=== PATIENT | female | born 1955 | race African-American/Black ===

== ENCOUNTER → 2018-12-04 | Outpatient (CLI) | payer OTHER ==
--- NOTE | 2018-12-04 17:20 | KCIC ---
2 view study of the toes of the left foot Clinical indications: Pain and swelling of the fifth digit after injury a few days ago. FINDINGS: There is cortical disruption of the fifth distal phalanx. This may represent a subtle nondisplaced fracture. No dislocation or lytic process evident. IMPRESSION: Suspected nondisplaced fracture of the fifth distal phalanx. Electronically signed by: Herb Wade MD (12/04/2018 5:17 PM) [facility]
== END | disposition home or self-care (01) ==
LOC: KCIC 15:50
PROVIDERS: ATTEND Family Medicine
DX: M89.8X7 Other specified disorders of bone, ankle and foot (principal)
CPT/HCPCS: 73660

== ENCOUNTER 2021-08-03 09:12 | Inpatient (IN) | payer MEDICARE, OTHER ==
[~2021-08-03] VITALS: Ht 162.6 cm; Wt 82.8 kg
[2021-08-03 09:51] LABS: BASO % 1 % (0-3); EOS # 0.3 x10^3/uL (0.0-0.7); EOS % 4 % (0-3); HEMOGLOBIN 10.8 g/dL (12.0-15.5); LYMPH # 2.4 x10^3/uL (1.0-4.8); LYMPH % 32 % (24-48); MEAN CORPUSCULAR HEMOGLOBIN 27 pg (25-35); MEAN CORPUSCULAR HGB CONC 33 g/dL (31-37); MEAN CORPUSCULAR VOLUME 83 fL (79-100); MONO # 0.5 x10^3/uL (0.0-1.1); MONO % 7 % (0-9); NEUT # 4.2 x10^3/uL (1.8-7.7); NEUT % 57 % (31-73); PLATELET COUNT 276 x10^3/uL (140-400); RED BLOOD COUNT 3.96 x10^6/uL (3.50-5.40); RED CELL DISTRIBUTION WIDTH 15.5 % (11.5-14.5); WHITE BLOOD COUNT 7.5 x10^3/uL (4.0-11.0)
[2021-08-03 10:03] LABS: PROTHROMBIN TIME PATIENT 12.1 SEC (11.7-14.0)
[2021-08-03 10:11] LABS: CALCIUM 8.7 mg/dL (8.5-10.1); CREATININE 2.5 mg/dL (0.6-1.0); GFR 23.2; POTASSIUM 4.2 mmol/L (3.5-5.1)
[2021-08-03] MEDS ORDERED: METF500T16 PO (10:14)
[2021-08-03] MEDS ORDERED: LIPITOR80 MG PO (10:14)
[2021-08-03] MEDS ORDERED: AMLO-186 PO (10:14)
[2021-08-03] MEDS ORDERED: GLIP5TAB10 PO (10:14)
[2021-08-03] MEDS ORDERED: HYDR-2869 PO (10:14)
[2021-08-03] MEDS ORDERED: CLON1PAT TD (10:14)
[2021-08-03] MEDS ORDERED: POTA10TA12 PO (10:14)
[2021-08-03] MEDS ORDERED: LISI20TA18 PO (10:14)
[2021-08-03] MEDS ORDERED: METO50TA6 PO (10:14)
[2021-08-03] MEDS ORDERED: LEVO137T3 PO (10:14)
[2021-08-03 10:16] LABS: ALBUMIN 2.7 g/dL (3.4-5.0); ALBUMIN/GLOBULIN RATIO 0.8 (1.0-1.7); TOTAL BILIRUBIN 0.4 mg/dL (0.2-1.0); TOTAL PROTEIN 6.2 g/dL (6.4-8.2)
--- NOTE | 2021-08-03 10:25 | RAD ---
XR CHEST 1V History: Altered mental status Comparison: None. Technique: Portable AP radiograph of the chest. Findings: The lungs are hypoinflated with bronchovascular crowding. No focal airspace consolidation, effusion o r pneumothorax. Postsurgical changes of the mediastinum with sternotomy wires and fixation plates. Me diastinal surgical clips. Soft tissues and osseous structures are unremarkable. Impression: 1. Hypoinflation. No acute cardiopulmonary findings. Electronically signed by: Waqas Burger MD (08/03/2021 10:22 AM) [id number]
--- NOTE | 2021-08-03 10:26 | RAD ---
INDICATION: Reason: altered mental status / Spl. Instructions: / History: . COMPARISON: None. TECHNIQUE: Axial CT images obtained through the head. One or more of the following individualized dose reduction techniques were utilized for this examinat ion: 1. Automated exposure control; 2. Adjustment of the mA and/or kV according to patient size; 3 . Use of iterative reconstruction technique. FINDINGS: No significant midline shift. Suprasellar cistern is not effaced. There are multiple regions of low density within the bilateral cerebral hemispheres. One of the large st regions of low density is within the left cerebral hemisphere posteriorly including within the occ ipital as well as posterior aspect of the temporal region. Severe calcific atherosclerosis. There is an additional confluent region of low density within the right frontal region. Calvarial hyperostosis with some artifact seen deep to the calvarium. Small amount of high density fluid within sphenoid sinus. IMPRESSION: * No definite acute intracranial hemorrhage. There is some high density just deep to the calvarium b ilaterally but this is likely artifactual in nature. * Within the left cerebral hemisphere posteriorly there is a large area of low density identified wi th some volume loss. 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 This is m ost likely a chronic finding given the volume loss within the region. * There are additional multifocal regions of low density within the bilateral cerebral hemispheres o f indeterminate age. Could be secondary to gliosis or edema and if there is clinical concern for acut e etiology it may be helpful to obtain an MRI to further assess and ensure that there is no acute on chronic process. * Partial opacification of sphenoid sinus which could be from congestion or sinusitis. Electronically signed by: Sanju Mark MD (08/03/2021 10:24 AM) [id number]
[2021-08-03 11:31] LABS: BACTERIA,URINE MANY /HPF (0-FEW)
[2021-08-03 11:35] LABS: BARBITURATES NEG (NEG); BENZODIAZEPINES NEG (NEG); CANNABINOIDS NEG (NEG); COCAINE NEG (NEG); METHADONE NEG (NEG); OPIATES NEG (NEG); PHENCYCLIDINE NEG (NEG)
[2021-08-03 11:47] LABS: AMPHETAMINE/METHAMPHETAMINE NEG (NEG)
--- NOTE | 2021-08-03 12:18 | PHYS DOC ---
Past Medical History Past Surgical History: Cholecystectomy, Coronary Bypass Surgery Smoking Status: Unknown if ever smoked Alcohol Use: None General Adult EDM: Chief Complaint: ALTERED MENTAL STATUS HPI: HPI: Patient is a 66 year old female who presents with altered mental status. Patient was hospitalized last month at [facility]. Patient was told that she had kidney disease as well as high blood pressure and was bradycardic. Patient presents with altered mental status this morning. Apparently, according to the partner, patient took her medications and then became somnolent. Patient is easily arousable to voice. Patient is A&O x3. Otherwise patient is not complaining of any symptoms or pain. Patient has not been complaining about any symptoms in the last couple of days either. According to the partner, this has happened before. Review of Systems: Review of Systems: Constitutional: Denies fever or chills. Eyes: Denies change in visual acuity. HENT: Denies nasal congestion or sore throat. Respiratory: Denies cough or shortness of breath. Cardiovascular: Denies chest pain or edema. GI: Denies abdominal pain, nausea, vomiting, bloody stools or diarrhea. : Denies dysuria. Musculoskeletal: Denies back pain or joint pain. Integument: Denies rash. Neurologic: Denies headache, focal weakness or sensory changes. Endocrine: Denies polyuria or polydipsia. Lymphatic: Denies swollen glands. Psychiatric: Denies depression or anxiety. Heart Score: C/O Chest Pain: No Risk Factors: Risk Factors: DM, Current or recent (<one month) smoker, HTN, HLP, family history of CAD, obesity. Risk Scores: Score 0 - 3: 2.5% MACE over next 6 weeks - Discharge Home Score 4 - 6: 20.3% MACE over next 6 weeks - Admit for Clinical Observation Score 7 - 10: 72.7% MACE over next 6 weeks - Early Invasive Strategies Physical Exam: PE: Constitutional: Well developed, well nourished, no acute distress, non-toxic appearance. Somnolent. HENT: Normocephalic, atraumatic, bilateral external ears normal, oropharynx moist, no oral exudates, nose normal. Eyes: PERRLA, EOMI, conjunctiva normal, no discharge. Neck: Normal range of motion, no tenderness, supple, no stridor. Cardiovascular:Heart rate bradycardic regular rhythm, no murmur Lungs & Thorax: Bilateral breath sounds clear to auscultation Abdomen: Bowel sounds normal, soft, no tenderness, no masses, no pulsatile masses. Skin: Warm, dry, no erythema, no rash. Back: No tenderness, no CVA tenderness. Extremities: No tenderness, no cyanosis, no clubbing, ROM intact, no edema. Neurologic: Alert and oriented X 3, normal motor function, normal sensory function, no focal deficits noted. Psychologic: Affect normal, judgement normal, mood normal. Current Patient Data: Labs: Laboratory Tests Test 08/03/21 09:28 08/03/21 09:30 08/03/21 11:18 Glucose (Fingerstick) 180 mg/dL (70-99) H White Blood Count 7.5 x10^3/uL (4.0-11.0) Red Blood Count 3.96 x10^6/uL (3.50-5.40) Hemoglobin 10.8 g/dL (12.0-15.5) L Hematocrit 33.0 % (36.0-47.0) L Mean Corpuscular Volume 83 fL (79-100) Mean Corpuscular Hemoglobin 27 pg (25-35) Mean Corpuscular Hemoglobin Concent 33 g/dL (31-37) Red Cell Distribution Width 15.5 % (11.5-14.5) H Platelet Count 276 x10^3/uL (140-400) Neutrophils (%) (Auto) 57 % (31-73) Lymphocytes (%) (Auto) 32 % (24-48) Monocytes (%) (Auto) 7 % (0-9) Eosinophils (%) (Auto) 4 % (0-3) H Basophils (%) (Auto) 1 % (0-3) Neutrophils # (Auto) 4.2 x10^3/uL (1.8-7.7) Lymphocytes # (Auto) 2.4 x10^3/uL (1.0-4.8) Monocytes # (Auto) 0.5 x10^3/uL (0.0-1.1) Eosinophils # (Auto) 0.3 x10^3/uL (0.0-0.7) Basophils # (Auto) 0.0 x10^3/uL (0.0-0.2) Prothrombin Time 12.1 SEC (11.7-14.0) Prothrombin Time INR 0.9 (0.8-1.1) Sodium Level 140 mmol/L (136-145) Potassium Level 4.2 mmol/L (3.5-5.1) Chloride Level 106 mmol/L (98-107) Carbon Dioxide Level 23 mmol/L (21-32) Anion Gap 11 (6-14) Blood Urea Nitrogen 26 mg/dL (7-20) H Creatinine 2.5 mg/dL (0.6-1.0) H Estimated GFR (Cockcroft-Gault) 23.2 BUN/Creatinine Ratio 10 (6-20) Glucose Level 174 mg/dL (70-99) H Calcium Level 8.7 mg/dL (8.5-10.1) Total Bilirubin 0.4 mg/dL (0.2-1.0) Aspartate Amino Transferase (AST) 17 U/L (15-37) Alanine Aminotransferase (ALT) 16 U/L (14-59) Alkaline Phosphatase 88 U/L (46-116) Ammonia < 10 mcmol/L (11-34) L Troponin I High Sensitivity 27 ng/L (4-50) Total Protein 6.2 g/dL (6.4-8.2) L Albumin 2.7 g/dL (3.4-5.0) L Albumin/Globulin Ratio 0.8 (1.0-1.7) L Urine Collection Type Unknown Urine Color (Auto) Yellow Urine Turbidity Turbid Urine pH (Auto) 5.5 (<5.0-8.0) Urine Specific [place] 1.019 (1.000-1.030) Urine Protein (Auto) 300 mg/dL (Negative) Urine Glucose (Auto)(UA) Negative mg/dL (Negative) Urine Ketones (Auto) Negative mg/dL (Negative) Urine Blood (Auto) Negative (Negative) Urine Nitrite (Auto) Negative (Negative) Urine Bilirubin (Auto) Negative (Negative) Urine Urobilinogen (Auto) Normal mg/dL (Normal) Urine Leukocyte Esterase (Auto) Small (Negative) Urine RBC 1-2 /HPF (0-2) Urine WBC 5-10 /HPF (0-4) Urine Squamous Epithelial Cells Mod /LPF Urine Bacteria Many /HPF (0-FEW) Urine Opiates Screen Neg (NEG) Urine Methadone Screen Neg (NEG) Urine Barbiturates Neg (NEG) Urine Phencyclidine Screen Neg (NEG) Urine Amphetamine/Methamphetamine Neg (NEG) Urine Benzodiazepines Screen Neg (NEG) Urine Cocaine Screen Neg (NEG) Urine Cannabinoids Screen Neg (NEG) Urine Ethyl Alcohol Neg (NEG) Laboratory Tests 08/03/21 09:30 Laboratory Tests 08/03/21 09:30 Vital Signs: Vital Signs Date Time Temp Pulse Resp B/P (MAP) Pulse Ox O2 Delivery O2 Flow Rate FiO2 08/03/21 11:52 46 16 100/55 (70) 99 08/03/21 09:28 97.2 Room Air 97.2 EKG: EKG: bradycardia Radiology/Procedures: Radiology/Procedures: CT head no acute abnormalities Course & Med Decision Making: Course & Med Decision Making Pertinent Labs and Imaging studies reviewed. (See chart for details) 66-year-old female with altered mental status, CT of the head as well as labs are not showing any acute abnormalities that would explain altered mental status. It was noted that she took her medications and then became somnolent. This may be an accidental overdose, however nothing is seen abnormal on labs. None of her medications should warrant sleepiness. I spoke to the hospitalist who agreed to monitor the patient in follow-up from [facility] medical records to examine what occurred during her previous hospitalization. Patient is not at baseline so she will need to be monitored more closely. Patient is currently in stable condition on admission. Pascale Disclaimer: Pascale Disclaimer: This electronic medical record was generated, in whole or in part, using a voice recognition dictation system. Departure Departure Referrals: KEVIN LOVE MD (PCP) GIGI TRACEY MD Aug 03, 2021 12:18
[2021-08-03 15:00] VITALS: BP 120/57
--- NOTE | 2021-08-03 15:27 | PDOC1 ---
History and Physical Date of Service: DOS: DATE: 08/03/21 TIME: 15:19 Chief Complaint: Chief Complain: Altered mental status. History of Present Illness: HPI: 66-year-old female with past medical history of CABG and hypertension and diabetes who comes in for altered mental status brought in by her . Patient apparently went to last month for elevated blood pressures. She they are unsure of what the discharge diagnosis was but they did send her out with multiple blood pressure medications which included a clonidine patch, amlodipine, metoprolol and losartan. Patient had 2 bags full of medications and there is some duplicates as well. However there was no aspirin or Plavix. Patient was brought in today because noticed she was sleepy and was not being herself. However patient is alert and awake and oriented x3. Denies any abdominal pain, chest pain, shortness of breath, dysuria or constipation. Past Medical/Surgical History: PMH/PSH: Past medical history of diabetes, hypertension, CABG Family History: Family History: Reviewed with no relative findings in the chart Social History: Social History: Denies alcohol, tobacco or drug abuse Current Medications: Current Medications Active Scripts Active Reported Clonidine Tts-1 (Clonidine) 1 Each Patch.tdwk 1 Patch TD WEEKLY Hydralazine Hcl 50 Mg Tablet 1 Tab PO TID Lisinopril 20 Mg Tablet 1 Tab PO DAILY Lipitor (Atorvastatin Calcium) 80 Mg Tablet 1 Tab PO DAILY Metoprolol Tartrate 50 Mg Tablet 1 Tab PO BID Potassium Chloride (Potassium Chloride) 10 Meq Tab.sr.24h 10 Meq PO DAILY Metformin Hcl 500 Mg Tablet 500 Mg PO BIDWMEALS Levothyroxine Sodium 137 Mcg Tablet 1 Tab PO DAILY Glipizide 5 Mg Tablet 1 Tab PO BID Amlodipine Besylate 5 Mg Tablet 5 Mg PO DAILY ROS: Review of Systems Review of System REVIEW OF SYSTEMS: GENERAL: Denies weakness SKIN: No bruising, hair changes or rashes. EYES: No blurred, double or loss of vision. NOSE AND THROAT: No history of nosebleeds, hoarseness or sore throat. HEART: No history of palpitations, chest pain or shortness of breath on exertion. LUNGS: Denies cough, hemoptysis, wheezing or shortness of breath. GASTROINTESTINAL: Denies changes in appetite, nausea, vomiting, diarrhea or constipation. GENITOURINARY: No history of frequency, urgency, hesitancy or nocturia. NEUROLOGIC: Denies history of numbness, tingling, or tremor. PSYCHIATRIC: No history of panic, anxiety or depression. ENDOCRINE: No history of heat or cold intolerance, polyuria or polydipsia. EXTREMITIES: Denies joint pain, pain on walking or stiffness. Physical Exam: Vital Signs: Vital Signs Date Time Temp Pulse Resp B/P (MAP) Pulse Ox O2 Delivery O2 Flow Rate FiO2 08/03/21 13:46 54 16 116/64 (81) 98 08/03/21 09:28 97.2 Room Air 97.2 Physcial Exam: General: Well developed, well nourished, no acute distress, well appearing HEENT: Pupils equally round and reactive to light, EOMI, no discharge, normal conjunctiva Neck: Supple, no nuchal rigidity, no JVD, trachea midline, no tenderness Cardiac: RRR, no murmurs, no gallops, no rubs Chest/Lungs: CTAB, no wheeze, no rhonchi, no crackles Abdomen: soft, non-distended, no guarding, no peritoneal signs, non-tender Back: No tenderness Extremities: no edema, pulses intact, non-tender,capillary refill <3 sec bilateral upper and lower extremities, Neuro: Alert and oriented x 4, no focal deficits, normal speech. Lethargic appearing needed to go pee. Labs: Labs: Laboratory Tests Test 08/03/21 09:28 08/03/21 09:30 08/03/21 11:18 Glucose (Fingerstick) 180 mg/dL (70-99) White Blood Count 7.5 x10^3/uL (4.0-11.0) Red Blood Count 3.96 x10^6/uL (3.50-5.40) Hemoglobin 10.8 g/dL (12.0-15.5) Hematocrit 33.0 % (36.0-47.0) Mean Corpuscular Volume 83 fL (79-100) Mean Corpuscular Hemoglobin 27 pg (25-35) Mean Corpuscular Hemoglobin Concent 33 g/dL (31-37) Red Cell Distribution Width 15.5 % (11.5-14.5) Platelet Count 276 x10^3/uL (140-400) Neutrophils (%) (Auto) 57 % (31-73) Lymphocytes (%) (Auto) 32 % (24-48) Monocytes (%) (Auto) 7 % (0-9) Eosinophils (%) (Auto) 4 % (0-3) Basophils (%) (Auto) 1 % (0-3) Neutrophils # (Auto) 4.2 x10^3/uL (1.8-7.7) Lymphocytes # (Auto) 2.4 x10^3/uL (1.0-4.8) Monocytes # (Auto) 0.5 x10^3/uL (0.0-1.1) Eosinophils # (Auto) 0.3 x10^3/uL (0.0-0.7) Basophils # (Auto) 0.0 x10^3/uL (0.0-0.2) Prothrombin Time 12.1 SEC (11.7-14.0) Prothromb Time International Ratio 0.9 (0.8-1.1) Sodium Level 140 mmol/L (136-145) Potassium Level 4.2 mmol/L (3.5-5.1) Chloride Level 106 mmol/L (98-107) Carbon Dioxide Level 23 mmol/L (21-32) Anion Gap 11 (6-14) Blood Urea Nitrogen 26 mg/dL (7-20) Creatinine 2.5 mg/dL (0.6-1.0) Estimated GFR (Cockcroft-Gault) 23.2 BUN/Creatinine Ratio 10 (6-20) Glucose Level 174 mg/dL (70-99) Calcium Level 8.7 mg/dL (8.5-10.1) Total Bilirubin 0.4 mg/dL (0.2-1.0) Aspartate Amino Transf (AST/SGOT) 17 U/L (15-37) Alanine Aminotransferase (ALT/SGPT) 16 U/L (14-59) Alkaline Phosphatase 88 U/L (46-116) Ammonia < 10 mcmol/L (11-34) Troponin I High Sensitivity 27 ng/L (4-50) Total Protein 6.2 g/dL (6.4-8.2) Albumin 2.7 g/dL (3.4-5.0) Albumin/Globulin Ratio 0.8 (1.0-1.7) Urine Collection Type Unknown Urine Color (Auto) Yellow Urine Turbidity Turbid Urine pH (Auto) 5.5 (<5.0-8.0) Urine Specific [place] 1.019 (1.000-1.030) Urine Protein (Auto) 300 mg/dL (Negative) Urine Glucose (Auto)(UA) Negative mg/dL (Negative) Urine Ketones (Auto) Negative mg/dL (Negative) Urine Blood (Auto) Negative (Negative) Urine Nitrite (Auto) Negative (Negative) Urine Bilirubin (Auto) Negative (Negative) Urine Urobilinogen (Auto) Normal mg/dL (Normal) Urine Leukocyte Esterase (Auto) Small (Negative) Urine RBC 1-2 /HPF (0-2) Urine WBC 5-10 /HPF (0-4) Urine Squamous Epithelial Cells Mod /LPF Urine Bacteria Many /HPF (0-FEW) Urine Opiates Screen Neg (NEG) Urine Methadone Screen Neg (NEG) Urine Barbiturates Neg (NEG) Urine Phencyclidine Screen Neg (NEG) Urine Amphetamine/Methamphetamine Neg (NEG) Urine Benzodiazepines Screen Neg (NEG) Urine Cocaine Screen Neg (NEG) Urine Cannabinoids Screen Neg (NEG) Urine Ethyl Alcohol Neg (NEG) Laboratory Tests Test 08/03/21 09:28 08/03/21 09:30 08/03/21 11:18 Glucose (Fingerstick) 180 mg/dL (70-99) White Blood Count 7.5 x10^3/uL (4.0-11.0) Red Blood Count 3.96 x10^6/uL (3.50-5.40) Hemoglobin 10.8 g/dL (12.0-15.5) Hematocrit 33.0 % (36.0-47.0) Mean Corpuscular Volume 83 fL (79-100) Mean Corpuscular Hemoglobin 27 pg (25-35) Mean Corpuscular Hemoglobin Concent 33 g/dL (31-37) Red Cell Distribution Width 15.5 % (11.5-14.5) Platelet Count 276 x10^3/uL (140-400) Neutrophils (%) (Auto) 57 % (31-73) Lymphocytes (%) (Auto) 32 % (24-48) Monocytes (%) (Auto) 7 % (0-9) Eosinophils (%) (Auto) 4 % (0-3) Basophils (%) (Auto) 1 % (0-3) Neutrophils # (Auto) 4.2 x10^3/uL (1.8-7.7) Lymphocytes # (Auto) 2.4 x10^3/uL (1.0-4.8) Monocytes # (Auto) 0.5 x10^3/uL (0.0-1.1) Eosinophils # (Auto) 0.3 x10^3/uL (0.0-0.7) Basophils # (Auto) 0.0 x10^3/uL (0.0-0.2) Prothrombin Time 12.1 SEC (11.7-14.0) Prothromb Time International Ratio 0.9 (0.8-1.1) Sodium Level 140 mmol/L (136-145) Potassium Level 4.2 mmol/L (3.5-5.1) Chloride Level 106 mmol/L (98-107) Carbon Dioxide Level 23 mmol/L (21-32) Anion Gap 11 (6-14) Blood Urea Nitrogen 26 mg/dL (7-20) Creatinine 2.5 mg/dL (0.6-1.0) Estimated GFR (Cockcroft-Gault) 23.2 BUN/Creatinine Ratio 10 (6-20) Glucose Level 174 mg/dL (70-99) Calcium Level 8.7 mg/dL (8.5-10.1) Total Bilirubin 0.4 mg/dL (0.2-1.0) Aspartate Amino Transf (AST/SGOT) 17 U/L (15-37) Alanine Aminotransferase (ALT/SGPT) 16 U/L (14-59) Alkaline Phosphatase 88 U/L (46-116) Ammonia < 10 mcmol/L (11-34) Troponin I High Sensitivity 27 ng/L (4-50) Total Protein 6.2 g/dL (6.4-8.2) Albumin 2.7 g/dL (3.4-5.0) Albumin/Globulin Ratio 0.8 (1.0-1.7) Urine Collection Type Unknown Urine Color (Auto) Yellow Urine Turbidity Turbid Urine pH (Auto) 5.5 (<5.0-8.0) Urine Specific [place] 1.019 (1.000-1.030) Urine Protein (Auto) 300 mg/dL (Negative) Urine Glucose (Auto)(UA) Negative mg/dL (Negative) Urine Ketones (Auto) Negative mg/dL (Negative) Urine Blood (Auto) Negative (Negative) Urine Nitrite (Auto) Negative (Negative) Urine Bilirubin (Auto) Negative (Negative) Urine Urobilinogen (Auto) Normal mg/dL (Normal) Urine Leukocyte Esterase (Auto) Small (Negative) Urine RBC 1-2 /HPF (0-2) Urine WBC 5-10 /HPF (0-4) Urine Squamous Epithelial Cells Mod /LPF Urine Bacteria Many /HPF (0-FEW) Urine Opiates Screen Neg (NEG) Urine Methadone Screen Neg (NEG) Urine Barbiturates Neg (NEG) Urine Phencyclidine Screen Neg (NEG) Urine Amphetamine/Methamphetamine Neg (NEG) Urine Benzodiazepines Screen Neg (NEG) Urine Cocaine Screen Neg (NEG) Urine Cannabinoids Screen Neg (NEG) Urine Ethyl Alcohol Neg (NEG) Images: Images PROCEDURE: PORTABLE CHEST 1V XR CHEST 1V History: Altered mental status Comparison: None. Technique: Portable AP radiograph of the chest. Findings: The lungs are hypoinflated with bronchovascular crowding. No focal airspace consolidation, effusion or pneumothorax. Postsurgical changes of the mediastinum with sternotomy wires and fixation plates. Mediastinal surgical clips. Soft tissues and osseous structures are unremarkable. Impression: 1. Hypoinflation. No acute cardiopulmonary findings. PROCEDURE: CT HEAD WO CONTRAST INDICATION: Reason: altered mental status / Spl. Instructions: / History: . COMPARISON: None. TECHNIQUE: Axial CT images obtained through the head. One or more of the following individualized dose reduction techniques were utilized for this examination: 1. Automated exposure control; 2. Adjustment of the mA and/or kV according to patient size; 3. Use of iterative reconstruction technique. FINDINGS: No significant midline shift. Suprasellar cistern is not effaced. There are multiple regions of low density within the bilateral cerebral hemispheres. One of the largest regions of low density is within the left cerebral hemisphere posteriorly including within the occipital as well as po sterior aspect of the temporal region. Severe calcific atherosclerosis. There is an additional confluent region of low density within the right frontal region. Calvarial hyperostosis with some artifact seen deep to the calvarium. Small amount of high density fluid within sphenoid sinus. IMPRESSION: * No definite acute intracranial hemorrhage. There is some high density just deep to the calvarium bilaterally but this is likely artifactual in nature. * Within the left cerebral hemisphere posteriorly there is a large area of low density identified with some volume loss. 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 This is most likely a chronic finding given the volume loss within the region. * There are additional multifocal regions of low density within the bilateral cerebral hemispheres of indeterminate age. Could be secondary to gliosis or edema and if there is clinical concern for acute etiology it may be helpful to obtain an MRI to further assess and ensure that there is no acute on chronic process. * Partial opacification of sphenoid sinus which could be from congestion or sinusitis. Assessment/Plan Assessment/Plan Acute metabolic encephalopathy, possibly related to polypharmacy Bradycardia possibly secondary to beta-blockade Acute on chronic kidney injury History of diabetes mellitus type 2 History of hypertension History of CABG Admit to hospitalist service for further management Continue telemetry monitoring Consider cardiology consult if continues to be bradycardic or more symptomatic Hold all antihypertensive regimens R-ISS and Accu-Cheks Vital signs per floor Lovenox for DVT prophylaxis ADA/cardiac diet CODE STATUS full Discussed with RN and SW Disposition inpatient management as above DPOA: Justifications for Admission Other Justification AURORA LR MD Aug 03, 2021 15:27
[2021-08-03] MEDS ORDERED: diphenhydrAMINE HCL 25 MG CAPSULE PO PRN ×2 (15:30)
[2021-08-03] MEDS ORDERED: ONDANSETRON PF 4 MG/2 ML VIAL. IVP PRN (15:30)
[2021-08-03] MEDS ORDERED: ZOLPIDEM 5 MG TABLET. PO PRN (15:30)
[2021-08-03] MEDS ORDERED: SENNOSIDES 8.6 MG TABLET PO PRN (15:30)
[2021-08-03] MEDS ORDERED: DOCUSATE SODIUM 100 MG CAPSULE. PO PRN (15:30)
[2021-08-03] MEDS ORDERED: PROCHLORPERAZINE 10 MG/2 ML VIAL. IV PRN (15:30)
[2021-08-03] MEDS: IV NORMAL SALINE 1000ML BAG 1,000 ML IV SCH (15:30)
[2021-08-03] MEDS ORDERED: DEXTROSE 50% 25 GM / 50ML DISP.SYRIN. IV PRN (15:30)
[2021-08-03] MEDS ORDERED: diphenhydrAMINE 50 MG/ML VIAL IVP PRN (15:30)
[2021-08-03] MEDS ORDERED: LORazepam 0.5 MG TABLET PO PRN (15:30)
[2021-08-03] MEDS: INSULIN LISPRO 300 UNITS/3 ML VIAL. SQ SCH (16:46)
[2021-08-03] MEDS: ENOXAPARIN 30 MG/0.3 ML SYRINGE. SQ SCH (17:37)
[2021-08-03 19:00] VITALS: BP 125/63
[2021-08-03 23:00] VITALS: BP 121/60
[2021-08-04] MEDS: IV NORMAL SALINE 1000ML BAG 1,000 ML IV SCH ×2 (01:36→12:26)
[2021-08-04 03:26] VITALS: BP 133/63
[2021-08-04 07:00] VITALS: BP 142/71
[2021-08-04] MEDS: INSULIN LISPRO 300 UNITS/3 ML VIAL. SQ SCH ×3 (08:00→17:46)
[2021-08-04 09:00] LABS: BASO # 0.1 x10^3/uL (0.0-0.2); BASO % 1 % (0-3); EOS # 0.2 x10^3/uL (0.0-0.7); EOS % 2 % (0-3); HEMOGLOBIN 10.4 g/dL (12.0-15.5); LYMPH # 2.1 x10^3/uL (1.0-4.8); LYMPH % 27 % (24-48); MEAN CORPUSCULAR HEMOGLOBIN 28 pg (25-35); MEAN CORPUSCULAR HGB CONC 34 g/dL (31-37); MEAN CORPUSCULAR VOLUME 83 fL (79-100); MONO # 0.4 x10^3/uL (0.0-1.1); MONO % 6 % (0-9); NEUT # 5.1 x10^3/uL (1.8-7.7); NEUT % 65 % (31-73); PLATELET COUNT 227 x10^3/uL (140-400); RED BLOOD COUNT 3.74 x10^6/uL (3.50-5.40); RED CELL DISTRIBUTION WIDTH 15.5 % (11.5-14.5); WHITE BLOOD COUNT 7.8 x10^3/uL (4.0-11.0)
[2021-08-04 09:35] LABS: CALCIUM 8.4 mg/dL (8.5-10.1); CREATININE 2.3 mg/dL (0.6-1.0); GFR 25.6; MAGNESIUM 1.8 mg/dL (1.8-2.4); PHOSPHORUS 4.8 mg/dL (2.6-4.7); POTASSIUM 3.8 mmol/L (3.5-5.1)
[2021-08-04 11:00] VITALS: BP 144/66
--- NOTE | 2021-08-04 14:11 | PDOC ---
[employer] PROGRESS NOTE Date of Service DOS: DATE: 08/04/21 TIME: 13:50 Chief Complaint Chief Complaint Acute metabolic encephalopathy, possibly related to polypharmacy Bradycardia possibly secondary to beta-blockade Acute on chronic kidney injury History of diabetes mellitus type 2 History of hypertension History of CABG Abnormal head CT scan Admit to hospitalist service for further management Continue telemetry monitoring Consider cardiology consult if continues to be bradycardic or more symptomatic Hold all antihypertensive regimens R-ISS and Accu-Cheks Vital signs per floor Lovenox for DVT prophylaxis ADA/cardiac diet CODE STATUS full Discussed with RN and SW Disposition inpatient management as above DPOA: History of Present Illness History of Present Illness 66-year-old female with past medical history of CABG and hypertension and diabetes who comes in for altered mental status brought in by her . Patient apparently went to last month for elevated blood pressures. She they are unsure of what the discharge diagnosis was but they did send her out with multiple blood pressure medications which included a clonidine patch, amlo dipine, metoprolol and losartan. Patient had 2 bags full of medications and there is some duplicates as well. However there was no aspirin or Plavix. Patient was brought in because noticed she was sleepy and was not being herself. Denies any abdominal pain, chest pain, shortness of breath, dysuria or constipation. 08/04: Still confused and drowsy. Blood pressure low bradycardic in the 50s. Blood glucose elevated. Patient notes no history of kidney disease Vitals/I&O Vitals/I&O: Vital Signs Date Time Temp Pulse Resp B/P (MAP) Pulse Ox O2 Delivery O2 Flow Rate FiO2 08/04/21 11:00 97.7 52 18 144/66 (92) 100 Room Air 97.7 I & O 08/03/21 08/03/21 08/04/21 15:00 23:00 07:00 Intake Total 240 ml 0 ml Balance 240 ml 0 ml Physical Exam General: Alert, Cooperative Heart: Other (Bradycardic) Lungs: Clear Abdomen: Normal bowel sounds, Soft Extremities: No clubbing, No cyanosis Skin: No rashes, No breakdown Labs Labs: Laboratory Tests Test 08/03/21 16:40 08/03/21 21:06 08/04/21 07:34 08/04/21 08:45 Glucose (Fingerstick) 76 mg/dL (70-99) 125 mg/dL (70-99) 101 mg/dL (70-99) White Blood Count 7.8 x10^3/uL (4.0-11.0) Red Blood Count 3.74 x10^6/uL (3.50-5.40) Hemoglobin 10.4 g/dL (12.0-15.5) Hematocrit 31.0 % (36.0-47.0) Mean Corpuscular Volume 83 fL (79-100) Mean Corpuscular Hemoglobin 28 pg (25-35) Mean Corpuscular Hemoglobin Concent 34 g/dL (31-37) Red Cell Distribution Width 15.5 % (11.5-14.5) Platelet Count 227 x10^3/uL (140-400) Neutrophils (%) (Auto) 65 % (31-73) Lymphocytes (%) (Auto) 27 % (24-48) Monocytes (%) (Auto) 6 % (0-9) Eosinophils (%) (Auto) 2 % (0-3) Basophils (%) (Auto) 1 % (0-3) Neutrophils # (Auto) 5.1 x10^3/uL (1.8-7.7) Lymphocytes # (Auto) 2.1 x10^3/uL (1.0-4.8) Monocytes # (Auto) 0.4 x10^3/uL (0.0-1.1) Eosinophils # (Auto) 0.2 x10^3/uL (0.0-0.7) Basophils # (Auto) 0.1 x10^3/uL (0.0-0.2) Sodium Level 144 mmol/L (136-145) Potassium Level 3.8 mmol/L (3.5-5.1) Chloride Level 111 mmol/L (98-107) Carbon Dioxide Level 21 mmol/L (21-32) Anion Gap 12 (6-14) Blood Urea Nitrogen 29 mg/dL (7-20) Creatinine 2.3 mg/dL (0.6-1.0) Estimated GFR (Cockcroft-Gault) 25.6 Glucose Level 99 mg/dL (70-99) Calcium Level 8.4 mg/dL (8.5-10.1) Phosphorus Level 4.8 mg/dL (2.6-4.7) Magnesium Level 1.8 mg/dL (1.8-2.4) Test 08/04/21 11:55 Glucose (Fingerstick) 139 mg/dL (70-99) Assessment and Plan Assessmemt and Plan Problems Medical Problems: (1) Altered mental status, unspecified Status: Acute Comment Review of Relevant I have reviewed the following items lucia (where applicable) has been applied. Medications: Current Medications Medications (Trade) Dose Ordered Sig/Landon Route PRN Reason Start Time Stop Time Status Last Admin Dose Admin Sodium Chloride 1,000 ml @ 100 mls/hr Q10H IV 08/03/21 15:30 08/04/21 12:26 Enoxaparin Sodium (Lovenox 30mg Syringe) 30 mg Q24H SQ 08/03/21 18:00 08/03/21 17:37 Images: CT head: * No definite acute intracranial hemorrhage. There is some high density just deep to the calvarium bilaterally but this is likely artifactual in nature. * Within the left cerebral hemisphere posteriorly there is a large area of low density identified with some volume loss. 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 This is most likely a chronic finding given the volume loss within the region. * There are additional multifocal regions of low density within the bilateral cerebral hemispheres of indeterminate age. Could be secondary to gliosis or edema and if there is clinical concern for acute etiology it may be helpful to obtain an MRI to further assess and ensure that there is no acute on chronic process. * Partial opacification of sphenoid sinus which could be from congestion or sinusitis. Justifications for Admission Other Justification Encephalopathy MARCELLA NOUGERA MD Aug 04, 2021 14:11
[2021-08-04 15:00] VITALS: BP 143/66
[2021-08-04] MEDS: LEVOTHYROXINE 137 MCG TABLET PO SCH (15:36)
[2021-08-04] MEDS: ENOXAPARIN 30 MG/0.3 ML SYRINGE. SQ SCH (17:47)
[2021-08-04 19:57] VITALS: BP 176/81
[2021-08-04] MEDS: ATORVASTATIN CALCIUM 40 MG TABLET. PO SCH (21:25)
[2021-08-04 23:25] VITALS: BP 169/73
[2021-08-05 03:25] VITALS: BP 147/68
--- NOTE | 2021-08-05 03:27 | RAD ---
EXAM: Complete renal ultrasound. Duplex Doppler sonography of the renal arteries. CLINICAL HISTORY: Reason: [place] after ARB administration, concern for renal artery stenosis COMPARISON: No priors TECHNIQUE: Grayscale and duplex Doppler sonography utilized. FINDINGS: Right renal length 9.3 cm. Normal cortical thickness and echogenicity. Shadowing from ribs and bowel gas limits visualization of segments of the upper lower poles. No mass or hydronephrosis evident. Rig ht renal vein is patent. Right renal artery peak systolic velocity 57 cm/s proximal, 62 cm/s mid segm ent, 61 cm/s distal which is normal. Right renal artery average resistive index is 0.71 which is norm al. Right renal artery/aorta velocity ratio less than 1 which is normal. Right renal artery waveforms are normal with no delayed systolic upstrokes evident. Left renal length 9.6 cm. Normal cortical thickness and echogenicity. No mass or hydronephrosis evide nt. There is limited visualization of the upper and lower poles due to shadowing from ribs and bowel gas. Left renal vein is patent. Left renal artery peak systolic velocity 123 cm/s proximal, 104 cm/s mid segment, 73 cm/s distal which is normal. Left renal artery/aorta velocity ratio is 1 which is nor mal. Left renal artery average resistive index 0.8 which is upper limits of normal. Left renal artery normal waveforms with no delayed systolic upstrokes evident. IMPRESSION: Normal exam. No hydronephrosis. No evidence of hemodynamically significant renal arterial stenosis. Electronically signed by: Flip Lew MD (08/05/2021 3:24 AM) [facility]
[2021-08-05] MEDS: LEVOTHYROXINE 137 MCG TABLET PO SCH (05:42)
[2021-08-05 07:19] VITALS: BP 145/72
[2021-08-05 07:34] LABS: BASO % 0 % (0-3); EOS # 0.2 x10^3/uL (0.0-0.7); EOS % 2 % (0-3); HEMATOCRIT 28.4 % (36.0-47.0); HEMOGLOBIN 9.5 g/dL (12.0-15.5); LYMPH # 2.2 x10^3/uL (1.0-4.8); LYMPH % 33 % (24-48); MEAN CORPUSCULAR HEMOGLOBIN 28 pg (25-35); MEAN CORPUSCULAR HGB CONC 34 g/dL (31-37); MEAN CORPUSCULAR VOLUME 83 fL (79-100); MONO # 0.5 x10^3/uL (0.0-1.1); MONO % 7 % (0-9); NEUT # 3.9 x10^3/uL (1.8-7.7); NEUT % 57 % (31-73); PLATELET COUNT 226 x10^3/uL (140-400); RED BLOOD COUNT 3.43 x10^6/uL (3.50-5.40); RED CELL DISTRIBUTION WIDTH 15.8 % (11.5-14.5); WHITE BLOOD COUNT 6.8 x10^3/uL (4.0-11.0)
[2021-08-05 07:53] LABS: CALCIUM 8.3 mg/dL (8.5-10.1); GFR 30.1; MAGNESIUM 1.7 mg/dL (1.8-2.4); POTASSIUM 3.8 mmol/L (3.5-5.1)
[2021-08-05] MEDS: INSULIN LISPRO 300 UNITS/3 ML VIAL. SQ SCH ×3 (08:00→17:00)
[2021-08-05 11:00] VITALS: BP 139/75
--- NOTE | 2021-08-05 12:18 | PDOC ---
[facility] [facility] PROGRESS NOTE Date of Service DOS: DATE: 08/05/21 TIME: 11:52 Chief Complaint Chief Complaint Acute metabolic encephalopathy, possibly related to polypharmacy Bradycardia possibly secondary to beta-blockade Acute on chronic kidney injury History of diabetes mellitus type 2 History of hypertension History of CABG Abnormal head CT scan Admit to hospitalist service for further management Continue telemetry monitoring Consider cardiology consult if continues to be bradycardic or more symptomatic Hold all antihypertensive regimens R-ISS and Accu-Cheks Vital signs per floor Lovenox for DVT prophylaxis ADA/cardiac diet CODE STATUS full Discussed with RN and SW Disposition inpatient management as above DPOA: History of Present Illness History of Present Illness 66-year-old female with past medical history of CABG and hypertension and diabetes who comes in for altered mental status brought in by her . He relates that he found her unresponsive and slumped over and was instructed by EMS after he was unable to find a pulse to perform CPR which he did at home prior to EMS arrival she was brought to the ED for further care. Patient apparently went to last month for elevated blood pressures. She they are unsure of what the discharge diagnosis was but they did send her out with multiple blood pressure medications which included a clonidine patch, amlodipine, metoprolol and losartan. Patient had 2 bags full of medications and there is some duplicates as well. However there was no aspirin or Plavix. CT head with no hemorrhage posterior left cerebral hemisphere larger low density with volume loss suspicious for prior left posterior CVA. Chest radiograph hypoinflation and prior sternotomy noted. No other findings 08/04: Still confused and drowsy. Blood pressure low bradycardic in the 50s. Blood glucose elevated. Patient notes no history of kidney disease, renal duplex ordered no flow limitations were obstructive disease 08/05: Still confused, but less confused today per . When asked about prior abnormal CT of head they both note they do not know anything about this and note her CABG was over 3 years ago. Heart rate in the low 60s blood pressure now in the 140s will restart her amlodipine and slowly add back medications. Very unsteady and she notes that she has a cane and walker at home but when brought in by nursing staff she notes she does not need a cane or a walker. Will have PT OT evaluation Vitals/I&O Vitals/I&O: Vital Signs Date Time Temp Pulse Resp B/P (MAP) Pulse Ox O2 Delivery O2 Flow Rate FiO2 08/05/21 07:19 98.7 69 145/72 (96) 98 Room Air 98.7 08/05/21 03:25 18 I & O 08/04/21 08/04/21 08/05/21 15:00 23:00 07:00 Intake Total 200 ml 320 ml Balance 200 ml 320 ml Physical Exam General: Alert, Cooperative Heart: Other (Bradycardic) Lungs: Clear Abdomen: Normal bowel sounds, Soft Extremities: No clubbing, No cyanosis Skin: No rashes, No breakdown Labs Labs: Laboratory Tests Test 08/04/21 11:55 08/04/21 17:10 08/04/21 20:43 08/05/21 06:25 Glucose (Fingerstick) 139 mg/dL (70-99) 182 mg/dL (70-99) 69 mg/dL (70-99) White Blood Count 6.8 x10^3/uL (4.0-11.0) Red Blood Count 3.43 x10^6/uL (3.50-5.40) Hemoglobin 9.5 g/dL (12.0-15.5) Hematocrit 28.4 % (36.0-47.0) Mean Corpuscular Volume 83 fL (79-100) Mean Corpuscular Hemoglobin 28 pg (25-35) Mean Corpuscular Hemoglobin Concent 34 g/dL (31-37) Red Cell Distribution Width 15.8 % (11.5-14.5) Platelet Count 226 x10^3/uL (140-400) Neutrophils (%) (Auto) 57 % (31-73) Lymphocytes (%) (Auto) 33 % (24-48) Monocytes (%) (Auto) 7 % (0-9) Eosinophils (%) (Auto) 2 % (0-3) Basophils (%) (Auto) 0 % (0-3) Neutrophils # (Auto) 3.9 x10^3/uL (1.8-7.7) Lymphocytes # (Auto) 2.2 x10^3/uL (1.0-4.8) Monocytes # (Auto) 0.5 x10^3/uL (0.0-1.1) Eosinophils # (Auto) 0.2 x10^3/uL (0.0-0.7) Basophils # (Auto) 0.0 x10^3/uL (0.0-0.2) Sodium Level 143 mmol/L (136-145) Potassium Level 3.8 mmol/L (3.5-5.1) Chloride Level 111 mmol/L (98-107) Carbon Dioxide Level 21 mmol/L (21-32) Anion Gap 11 (6-14) Blood Urea Nitrogen 20 mg/dL (7-20) Creatinine 2.0 mg/dL (0.6-1.0) Estimated GFR (Cockcroft-Gault) 30.1 Glucose Level 94 mg/dL (70-99) Calcium Level 8.3 mg/dL (8.5-10.1) Magnesium Level 1.7 mg/dL (1.8-2.4) Test 08/05/21 07:35 Glucose (Fingerstick) 118 mg/dL (70-99) Assessment and Plan Assessmemt and Plan Problems Medical Problems: (1) Altered mental status, unspecified Status: Acute Comment Review of Relevant I have reviewed the following items lucia (where applicable) has been applied. Medications: Current Medications Medications (Trade) Dose Ordered Sig/Landon Route PRN Reason Start Time Stop Time Status Last Admin Dose Admin Levothyroxine Sodium (Synthroid) 137 mcg DAILY06 PO 08/04/21 15:00 08/05/21 05:42 Atorvastatin Calcium (Lipitor) 80 mg QHS PO 08/04/21 21:00 08/04/21 21:25 Justifications for Admission Other Justification Encephalopathy MARCELLA NOGUERA MD Aug 05, 2021 12:18
[2021-08-05] MEDS ORDERED: MAGNESIUM SULFATE 1GM 100 ML IV ONE (13:00)
[2021-08-05] MEDS: ENOXAPARIN 30 MG/0.3 ML SYRINGE. SQ SCH (18:46)
[2021-08-05 19:54] VITALS: BP_SYST 92
[2021-08-05 21:22] VITALS: BP 201/92
[2021-08-05 23:08] VITALS: BP 164/81
[2021-08-06] VITALS (7 sets, daily range): BP systolic 148–208; BP diastolic 80–102
[2021-08-06] MEDS: ATORVASTATIN CALCIUM 40 MG TABLET. PO SCH ×2 (03:15→20:02)
[2021-08-06] MEDS: hydrALAZINE 20 MG/ML VIAL. IVP PRN ×2 (03:16→17:57)
[2021-08-06] MEDS: LEVOTHYROXINE 137 MCG TABLET PO SCH (06:12)
[2021-08-06] MEDS: INSULIN LISPRO 300 UNITS/3 ML VIAL. SQ SCH ×3 (08:00→17:21)
[2021-08-06 10:29] LABS: BASO % 0 % (0-3); EOS # 0.2 x10^3/uL (0.0-0.7); EOS % 3 % (0-3); HEMATOCRIT 32.5 % (36.0-47.0); HEMOGLOBIN 10.7 g/dL (12.0-15.5); LYMPH # 2.4 x10^3/uL (1.0-4.8); LYMPH % 31 % (24-48); MEAN CORPUSCULAR HEMOGLOBIN 27 pg (25-35); MEAN CORPUSCULAR HGB CONC 33 g/dL (31-37); MEAN CORPUSCULAR VOLUME 83 fL (79-100); MONO # 0.6 x10^3/uL (0.0-1.1); MONO % 7 % (0-9); NEUT # 4.6 x10^3/uL (1.8-7.7); NEUT % 59 % (31-73); PLATELET COUNT 249 x10^3/uL (140-400); RED BLOOD COUNT 3.92 x10^6/uL (3.50-5.40); RED CELL DISTRIBUTION WIDTH 15.7 % (11.5-14.5); WHITE BLOOD COUNT 7.7 x10^3/uL (4.0-11.0)
[2021-08-06 10:43] LABS: CALCIUM 8.9 mg/dL (8.5-10.1); CREATININE 2.1 mg/dL (0.6-1.0); GFR 28.4; MAGNESIUM 1.9 mg/dL (1.8-2.4); POTASSIUM 3.7 mmol/L (3.5-5.1)
--- NOTE | 2021-08-06 11:47 | PDOC ---
[employer] PROGRESS NOTE Date of Service DOS: DATE: 08/06/21 TIME: 11:46 Chief Complaint Chief Complaint Acute metabolic encephalopathy, possibly related to polypharmacy Bradycardia possibly secondary to beta-blockade Acute on chronic kidney injury History of diabetes mellitus type 2 History of hypertension History of CABG Abnormal head CT scan Admit to hospitalist service for further management Continue telemetry monitoring Consider cardiology consult if continues to be bradycardic or more symptomatic Hold all antihypertensive regimens R-ISS and Accu-Cheks Vital signs per floor Lovenox for DVT prophylaxis ADA/cardiac diet CODE STATUS full Discussed with RN and SW Disposition inpatient management as above DPOA: History of Present Illness History of Present Illness 08/06/2021 Patient seen and examined She remains pleasantly confused does not know what year it is does not know what holiday it is she thinks it is New 's but it is actually Discussed with RN Chart reviewed Discussed with case management 66-year-old female with past medical history of CABG and hypertension and diabetes who comes in for altered mental status brought in by her . He relates that he found her unresponsive and slumped over and was instructed by EMS after he was unable to find a pulse to perform CPR which he did at home prior to EMS arrival she was brought to the ED for further care. Patient apparently went to [facility] last month for elevated blood pressures. She they are unsure of what the discharge diagnosis was but they did send her out with multiple blood pressure medications which included a clonidine patch, amlodipine, metoprolol and losartan. Patient had 2 bags full of medications and there is some duplicates as well. However there was no aspirin or Plavix. CT head with no hemorrhage posterior left cerebral hemisphere larger low density with volume loss suspicious for prior left posterior CVA. Chest radiograph hypoinflation and prior sternotomy noted. No other findings 08/04: Still confused and drowsy. Blood pressure low bradycardic in the 50s. Blood glucose elevated. Patient notes no history of kidney disease, renal duplex ordered no flow limitations were obstructive disease 08/05: Still confused, but less confused today per . When asked about prior abnormal CT of head they both note they do not know anything about this and note her CABG was over 3 years ago. Heart rate in the low 60s blood pressure now in the 140s will restart her amlodipine and slowly add back medications. Very unsteady and she notes that she has a cane and walker at home but when brought in by nursing staff she notes she does not need a cane or a walker. Will have PT OT evaluation Vitals/I&O Vitals/I&O: Vital Signs Date Time Temp Pulse Resp B/P (MAP) Pulse Ox O2 Delivery O2 Flow Rate FiO2 08/06/21 09:44 81 149/86 08/06/21 07:00 98.3 16 97 Room Air 98.3 I & O 08/05/21 08/05/21 08/06/21 15:00 23:00 07:00 Intake Total 250 ml 300 ml 470 ml Balance 250 ml 300 ml 470 ml Physical Exam General: Alert, Cooperative, Other (Pleasantly confused) Heart: Other (Bradycardic) Lungs: Clear Abdomen: Normal bowel sounds, Soft Extremities: No clubbing, No cyanosis Skin: No rashes, No breakdown Labs Labs: Laboratory Tests Test 08/05/21 17:25 08/05/21 20:41 08/06/21 07:30 08/06/21 10:14 Glucose (Fingerstick) 119 mg/dL (70-99) 155 mg/dL (70-99) 117 mg/dL (70-99) White Blood Count 7.7 x10^3/uL (4.0-11.0) Red Blood Count 3.92 x10^6/uL (3.50-5.40) Hemoglobin 10.7 g/dL (12.0-15.5) Hematocrit 32.5 % (36.0-47.0) Mean Corpuscular Volume 83 fL (79-100) Mean Corpuscular Hemoglobin 27 pg (25-35) Mean Corpuscular Hemoglobin Concent 33 g/dL (31-37) Red Cell Distribution Width 15.7 % (11.5-14.5) Platelet Count 249 x10^3/uL (140-400) Neutrophils (%) (Auto) 59 % (31-73) Lymphocytes (%) (Auto) 31 % (24-48) Monocytes (%) (Auto) 7 % (0-9) Eosinophils (%) (Auto) 3 % (0-3) Basophils (%) (Auto) 0 % (0-3) Neutrophils # (Auto) 4.6 x10^3/uL (1.8-7.7) Lymphocytes # (Auto) 2.4 x10^3/uL (1.0-4.8) Monocytes # (Auto) 0.6 x10^3/uL (0.0-1.1) Eosinophils # (Auto) 0.2 x10^3/uL (0.0-0.7) Basophils # (Auto) 0.0 x10^3/uL (0.0-0.2) Sodium Level 140 mmol/L (136-145) Potassium Level 3.7 mmol/L (3.5-5.1) Chloride Level 107 mmol/L (98-107) Carbon Dioxide Level 22 mmol/L (21-32) Anion Gap 11 (6-14) Blood Urea Nitrogen 16 mg/dL (7-20) Creatinine 2.1 mg/dL (0.6-1.0) Estimated GFR (Cockcroft-Gault) 28.4 Glucose Level 191 mg/dL (70-99) Calcium Level 8.9 mg/dL (8.5-10.1) Magnesium Level 1.9 mg/dL (1.8-2.4) Assessment and Plan Assessmemt and Plan Problems Medical Problems: (1) Altered mental status, unspecified Status: Acute Acute metabolic encephalopathy, possibly related to polypharmacy Bradycardia possibly secondary to beta-blockade Acute on chronic kidney injury History of diabetes mellitus type 2 History of hypertension History of CABG Abnormal head CT scan Plan We are starting a [facility] unit evaluation Home meds DVT prophylaxis Full code PT OT Hope to discharge to skilled tomorrow Comment Review of Relevant I have reviewed the following items lucia (where applicable) has been applied. Medications: Current Medications Medications (Trade) Dose Ordered Sig/Landon Route PRN Reason Start Time Stop Time Status Last Admin Dose Admin Magnesium Sulfate/ Dextrose 100 ml @ 100 mls/hr 1X ONCE IV 08/05/21 13:00 08/05/21 13:59 DC 08/05/21 13:43 Amlodipine Besylate (Norvasc) 5 mg DAILY PO 08/05/21 12:00 08/06/21 09:44 Hydralazine HCl (Apresoline Inj) 10 mg PRN Q4HRS PRN IVP ELEVATED BP, SEE COMMENTS 08/05/21 21:45 08/06/21 03:16 Justifications for Admission Other Justification Encephalopathy NATALEE AGUILAR III DO Aug 06, 2021 11:47
--- NOTE | 2021-08-06 16:50 | NUR ---
SS following for discharge planning. SS reviewed pt chart and discussed with pt RN. Pt is from home and is currently on room air. PT/OT recommended acute rehabilitation. COVID19 test requested for placement. Pt's family agreeable to acute rehabilitation and requested referral to [facility], ; fax [phone]. Referral sent as requested. SS will continue to follow for discharge planning.
[2021-08-06] MEDS: ENOXAPARIN 30 MG/0.3 ML SYRINGE. SQ SCH (17:16)
[2021-08-06] MEDS: ACETAMINOPHEN 325 MG TABLET. PO PRN (20:03)
[2021-08-07 03:00] VITALS: BP 171/90
[2021-08-07] MEDS: LEVOTHYROXINE 137 MCG TABLET PO SCH (05:34)
[2021-08-07 07:00] VITALS: BP 195/95
[2021-08-07] MEDS: INSULIN LISPRO 300 UNITS/3 ML VIAL. SQ SCH ×2 (08:00→12:00)
--- NOTE | 2021-08-07 10:19 | PDOC ---
[employer] PROGRESS NOTE Date of Service DOS: DATE: 08/07/21 TIME: 10:17 Chief Complaint Chief Complaint Acute metabolic encephalopathy, possibly related to polypharmacy Bradycardia possibly secondary to beta-blockade Acute on chronic kidney injury History of diabetes mellitus type 2 History of hypertension History of CABG Abnormal head CT scan Admit to hospitalist service for further management Continue telemetry monitoring Consider cardiology consult if continues to be bradycardic or more symptomatic Hold all antihypertensive regimens R-ISS and Accu-Cheks Vital signs per floor Lovenox for DVT prophylaxis ADA/cardiac diet CODE STATUS full Discussed with RN and SW Disposition inpatient management as above DPOA: History of Present Illness History of Present Illness 08/07/2021 Patient seen and examined Pleasant does not know the year but knows her date of Discussed with RN Chart reviewed Discussed with case management She is being evaluated by [facility] rehab 08/06/2021 Patient seen and examined She remains pleasantly confused does not know what year it is does not know what holiday it is she thinks it is New Year's but it is actually Discussed with RN Chart reviewed Discussed with case management 66-year-old female with past medical history of CABG and hypertension and diabetes who comes in for altered mental status brought in by her . He relates that he found her unresponsive and slumped over and was instructed by EMS after he was unable to find a pulse to perform CPR which he did at home p rior to EMS arrival she was brought to the ED for further care. Patient apparently went to last month for elevated blood pressures. She they are unsure of what the discharge diagnosis was but they did send her out with multiple blood pressure medications which included a clonidine patch, amlodipine, metoprolol and losartan. Patient had 2 bags full of medications and there is some duplicates as well. However there was no aspirin or Plavix. CT head with no hemorrhage posterior left cerebral hemisphere larger low density with volume loss suspicious for prior left posterior CVA. Chest radiograph hypoinflation and prior sternotomy noted. No other findings 08/04: Still confused and drowsy. Blood pressure low bradycardic in the 50s. Blood glucose elevated. Patient notes no history of kidney disease, renal duplex ordered no flow limitations were obstructive disease 08/05: Still confused, but less confused today per . When asked about prior abnormal CT of head they both note they do not know anything about this and note her CABG was over 3 years ago. Heart rate in the low 60s blood pressure now in the 140s will restart her amlodipine and slowly add back medications. Very unsteady and she notes that she has a cane and walker at home but when brought in by nursing staff she notes she does not need a cane or a walker. Will have PT OT evaluation Vitals/I&O Vitals/I&O: Vital Signs Date Time Temp Pulse Resp B/P (MAP) Pulse Ox O2 Delivery O2 Flow Rate FiO2 08/07/21 09:03 60 195/95 08/07/21 07:00 97.9 20 99 Room Air 97.9 I & O 08/06/21 08/06/21 08/07/21 15:00 23:00 07:00 Intake Total 150 ml 510 ml 420 ml Balance 150 ml 510 ml 420 ml Physical Exam General: Alert, Cooperative, Other (Pleasantly confused) Heart: Other (Bradycardic) Lungs: Clear Abdomen: Normal bowel sounds, Soft Extremities: No clubbing, No cyanosis Skin: No rashes, No breakdown Labs Labs: Laboratory Tests Test 08/06/21 11:55 08/06/21 17:07 08/06/21 21:05 08/07/21 07:29 Glucose (Fingerstick) 119 mg/dL (70-99) 163 mg/dL (70-99) 132 mg/dL (70-99) 113 mg/dL (70-99) Assessment and Plan Assessmemt and Plan Problems Medical Problems: (1) Altered mental status, unspecified Status: Acute Acute metabolic encephalopathy, possibly related to polypharmacy Bradycardia possibly secondary to beta-blockade Acute on chronic kidney injury History of diabetes mellitus type 2 History of hypertension History of CABG Abnormal head CT scan Plan [facility] rehab evaluation progress Home meds DVT prophylaxis Full code Trend labs Encourage p.o. intake PT OT Hope to discharge [facility] rehab soon Comment Review of Relevant I have reviewed the following items lucia (where applicable) has been applied. Justifications for Admission Other Justification Encephalopathy NATALEE AGUILAR III DO Aug 07, 2021 10:18
--- NOTE | 2021-08-07 10:20 | SNU/HH DC ---
DISCHARGE ORDERS DISCHARGE INFORMATION: FINAL DIAGNOSIS Problems Medical Problems: (1) Altered mental status, unspecified Status: Acute CONDITION ON DISCHARGE: Stable CODE STATUS: Code Status: Full JAIL: SNF STAY <30 DAYS: No HOSPICE: HOSPICE: No HOSPICE EVAL & TREAT: No LTAC: ADMIT TO LTAC: No POST DISCHARGE ORDERS: DIET AFTER DISCHARGE: Cardiac OTHER ORDERS: Discharge to [facility] rehab okay to continue cu TREATMENT/EQUIPMENT ORDERS: Physical Therapy For: Evalulation/Treatment Occupational Therapy For: Evaluation/Treatment Speech Language Pathology For: Evaluation/Treatment DISCHARGE MEDICATIONS: Home Meds Reported Medications Clonidine (CLONIDINE TTS-1 ) 1 Each Patch.tdwk, 1 PATCH TD WEEKLY for HYPERTENSION, PATCH 08/03/21 Hydralazine Hcl (HYDRALAZINE HCL) 50 Mg Tablet, 1 TAB PO TID, #90 TAB 5 Refills 08/03/21 Lisinopril (LISINOPRIL) 20 Mg Tablet, 1 TAB PO DAILY, #30 TAB 5 Refills 08/03/21 Atorvastatin Calcium (LIPITOR) 80 Mg Tablet, 1 TAB PO DAILY, #30 TAB 5 Refills 08/03/21 Metoprolol Tartrate (METOPROLOL TARTRATE) 50 Mg Tablet, 1 TAB PO BID, #60 TAB 5 Refills 08/03/21 Potassium Chloride (POTASSIUM CHLORIDE ) 10 Meq Tab.sr.24h, 10 MEQ PO DAILY for SUPPLEMENT, TAB.SR 08/03/21 Metformin Hcl (METFORMIN HCL) 500 Mg Tablet, 500 MG PO BIDWMEALS for ANTI- DIABETIC, TAB 0 Refills 08/03/21 Levothyroxine Sodium (LEVOTHYROXINE SODIUM) 137 Mcg Tablet, 1 TAB PO DAILY, #90 TAB 1 Refill 08/03/21 Glipizide (GLIPIZIDE) 5 Mg Tablet, 1 TAB PO BID, #60 TAB 3 Refills 08/03/21 Amlodipine Besylate (AMLODIPINE BESYLATE) 5 Mg Tablet, 5 MG PO DAILY, TAB 08/03/21 NATALEE AGUILAR III DO Aug 07, 2021 10:20
[2021-08-07 11:00] VITALS: BP 191/105
[2021-08-07 11:07] VITALS: BP 191/105
[2021-08-07] MEDS: hydrALAZINE 20 MG/ML VIAL. IVP PRN (11:07)
--- NOTE | 2021-08-07 14:01 | NUR ---
SS following up with discharge planning. SS reviewed pt chart and discussed with pt RN. Pt is currently on room air. PT/OT recommended acute rehabilitation. Pt accepted at [facility], ; fax [phone]. Discharge orders received and sent to [facility]. Pt will discharge today and go to [facility] via wheelchair transport arranged by [facility]. Pt and pt's RN notified.
[2021-08-07] MEDS: ACETAMINOPHEN 325 MG TABLET. PO PRN (14:37)
--- NOTE | 2021-08-07 16:31 | NUR ---
Discharge Note: ELIDA GALAVIZ ROSALIE Discharge instructions and discharge home medications reviewed with Other facility and a copy given. All questions have been answered and understanding verbalized. The following instructions and handouts were given: transfer of care. Discontinued lines and drains: 20 right AC, tip intact. Patient tolerated well. Patient discharged to [facility] via transportation.
== END 2021-08-07 15:00 | DRG 682 ==
LOC: ER 09:12 → ED HOLD 12:20 → 5 NORTH 14:27
PROVIDERS: ADMIT Internal Medicine; ATTEND Internal Medicine
DX: N17.9 Acute kidney failure, unspecified (principal); G93.41 Metabolic encephalopathy; R00.1 Bradycardia, unspecified; E11.65 Type 2 diabetes mellitus with hyperglycemia; I10 Essential (primary) hypertension; M85.80 Other specified disorders of bone density and structure, unspecified site; N28.9 Disorder of kidney and ureter, unspecified; Z86.73 Personal history of transient ischemic attack (TIA), and cerebral infarction without residual deficits; Z95.1 Presence of aortocoronary bypass graft; Z90.49 Acquired absence of other specified parts of digestive tract
CPT/HCPCS: 36415; 70450; 71045; 76770; 80048; 80053; 80307; 81001; 82140; 82962; 83735; 84100; 84484; 85025; 85610; J0360; J1650; J3475; J7030; U0003; 97116-GP; 97530-GP; 97535-GO; 99285-25; G0378